=== PATIENT | male | born 1990 | race Caucasian/White ===

== ENCOUNTER → 2019-09-29 13:06 | Outpatient (CLI) | payer BC, OTHER, SELFPAY | PROVIDERS: Visit Provider Nurse Practitioner | DX: L73.1 Pseudofolliculitis barbae (principal) | CPT/HCPCS: 87070; 87077; 87147; 87186; 87205 ==

== ENCOUNTER → 2024-09-22 13:06 | Outpatient (CLI) | payer BC, OTHER, SELFPAY | LOC: LAB 13:10 | DX: Z13.9 Encounter for screening, unspecified (principal) | CPT/HCPCS: 36415 ==